=== PATIENT | female | born 1985 | race Hispanic/Latino ===

== ENCOUNTER 2018-10-25 01:15 | Emergency (ER) | payer MEDICAID ==
[2018-10-25 02:16] VITALS: BP 102/58; TEMP 97.9; BMI 33.1
[2018-10-25 02:45] LABS: Bilirubin Negative (Negative); Blood, Urine Negative (Negative); Clarity CLOUDY (Clear); Glucose, Urine (Dipstick) Negative (Negative); Leukocyte Negative (Negative); Nitrite Negative (Negative); Protein, Urine (Dipstick) Negative (Neg-Trace); Specific Gravity, Urine 1.025 (1.002-1.036)
--- NOTE | 2018-10-25 02:46 | PDOC.FPROB ---
FMR OB H&P: HPI - History of Present Illness Chief Complaint: Labor Pains Indentification: 33 yo @ 30.6 weeks by 30.1 wk Sono History of Present Illness: This is a pt with pmh of schizophrenia that comes in with reported Labor pains. Reports having ctx and that her water broke. During the interview pts eyes are moving in every direction. Does not maintain eye contact. Pt is A&Ox4. Pt is twitching. During the encounter she talks to people that are not there. She denies any auditory or visual hallucinations. Pt does not always respond to questions and seems like she is responding to internal stimuli. Speech is pressured. Pt is Alert and oriented but poor historian. Unsure of how accurate of a history I am receiving from the patient. Pt denies any fever or chills. Denies any recent drug use Primary Care Physician: Gurmeet FMR OB H&P: Current - Care : 10 Para: 8 Gestational age: 30.6 weeks Due date: 12/28/18 Dating Criteria: 30.1 week U/S - OB Labs Blood type: unknown RH: unknown Antibody Screen: unknown HIV: unknown RPR: unknown HepBsAg: unknown Quad screen: unknown Gonorrhea: unknown Chlamydia: unknown GBS: unknown FMR OB H&P: History - Past Medical History PMH: Schizophrenia FMR OB H&P: Medications - Current Home Medications: Medication Instructions Recorded Confirmed Type No Known 10/25/18 10/25/18 History Allergies/Adverse Reactions: Allergies Allergy/AdvReac Type Severity Reaction Status Date / Time No Known Allergies Allergy Verified 10/25/18 02:07 FMR OB H&P: ROS - Review of Systems General: denies: fever/chills, fatigue Eyes: denies: double vision Respiratory: denies: cough, congestion, shortness of breath Gastrointestinal: reports: abdominal pain. denies: cramping, nausea, vomiting, diarrhea, constipation Genitourinary (Female): reports: vaginal pain, contractions. denies: incontinence, vaginal pressure Musculoskeletal: denies: pain, stiffness Neurologic: denies: numbness, weakness Integumentary: denies: itching, rash Psychological: denies: hallucinations (Pt appears to be in acute psychosis at this time. Pt does not maintain eye contact. Is talking to people not present in the room.) FMR OB H&P: Vital Signs - Maternal Vital signs: Vital Signs - First Documented Temp Pulse Resp BP 97.9 F 81 18 102/58 L 10/25/18 02:04 10/25/18 02:04 10/25/18 02:04 10/25/18 02:04 FMR OB H&P: Physical Exam - Physical Exam General: NAD, awake, alert and oriented (Alert and oriented x4) HEENT: normocephalic and atraumatic Deviation from normal: Pt eyes moving very fast and in every direction Chest: non-tender to palpation Heart: RRR, normal S1/S2, no murmurs/rubs/gallops, no edema General: CTAB, no respiratory distress, good air movement, no wheezing Abdomen: gravid, non-tender, bowel sound present, no masses Musculoskeletal: FROM in all four extremities Neurological: sensation to pain,touch and proprioception grossly normal Skin: no rash, capillary refill <2 seconds Psychiatric: good judgement and insight, other (Pt speech is pressured. Pt denies any auditory or visual hallucinations but during exam she is talking to people that arent there. She is fidgeting in the room.) FMR OB H&P: A/P - Problem List (1) Schizophrenia Current Visit: Yes Status: Acute Code(s): F20.9 - SCHIZOPHRENIA, UNSPECIFIED (2) Psychosis Current Visit: Yes Status: Acute Qualifiers: Psychosis type: schizophrenia (3) Current Visit: Yes Status: Acute Qualifiers: Weeks of gestation: 30 weeks Qualified Code(s): Z3A.30 - 30 weeks gestation of Disposition: 33 yo @ 30.6 weeks with pmh of schizophrenia comes in with reported labor pains. Pt appears to be in acute psychosis at this time. -Will get amnisure, fibronectin to rule out labor. Pt did not keep monitor on for prolonged monitoring. No ctx seen in brief heart tone tracing. -Will do SVE on patient once labs come back. -Urinalysis obtained. Psychosis -MHMR consulted. Will have them evaluate once patient is medically cleared. -Will check serum and urine drug screen. -Will check CBC, CMP, and TSH. Discussion: Date/Time: 10/25/18 1105 This H&P was discussed with [] and [] who agree with the above documentation and plan. Addendum - Attending - Attending Attestation Date/Time: 10/25/18 3960 I personally evaluated the patient and discussed the management with Dr. Prado. 33 yo LAF at 32 weeks sent from [facility] ER to r/o PTL. Has h/o schizophrenia. Labs obtained. I agree with the History, Examination, Assessment and Plan documented above with any addition or exceptions noted below.
[2018-10-25 02:50] LABS: Amnisure Test No Membranes Rupture (No Rupture)
[2018-10-25 02:51] LABS: Amnisure Internal Control QC ACCEPTABLE (ACCEPTABLE)
[2018-10-25 02:55] LABS: Amphetamine Detected (NotDetected); Barbiturates Screen Not Detected (NotDetected); Benzodiazepine Screen Not Detected (NotDetected); Cocaine Metabolite Screen Not Detected (NotDetected); Medtox Control Line Valid? VALID (VALID); Medtox Reader # READER 1; Methadone Not Detected (NotDetected); Methamphetamine Not Detected (NotDetected); Opiate Screen Not Detected (NotDetected); Oxycodone Screen Not Detected (NotDetected); Phencyclidine (PCP) Detected (NotDetected); THC/Cannabinoid Screen Detected (NotDetected); Tricyclic Screen Not Detected (NotDetected)
[2018-10-25 03:12] LABS: FFN Internal QC Analyzer PASS (PASS); FFN Internal QC Cassette PASS (PASS); Fetal Fibronectin Negative (Negative)
[2018-10-25 03:13] LABS: #Basophils 0.1 thou/uL (0.0-0.2); #Eosinphils 0.3 thou/uL (0.0-0.7); #Monocytes 0.6 thou/uL (0.11-0.59); #Neutrophils 7.6 thou/uL (1.40-6.50); %Basophils 0.5 % (0.0-1.0); %Eosinophils 2.7 % (0.0-10.0); %Lymphocytes 26.2 % (21.0-51.0); %Monocytes 4.8 % (0.0-10.0); %Neutrophils 65.8 % (42.0-75.0); Hemoglobin 9.1 g/dL (12.0-16.0); Mean Corpuscular HGB CONC 34.6 g/dL (32.0-36.0); Mean Corpuscular Hemoglobin 28.7 pg (27.0-31.0); Mean Corpuscular Volume 82.8 fL (78.0-98.0); Mean Platelet Volume 8.5 fL (7.4-10.4); Platelet Count 271 thou/uL (130-400); RBC Distribution Width 13.1 % (11.5-14.5); Red Blood Cell (RBC) Count 3.17 mill/uL (4.20-5.40); White Blood Cell (WBC) Count 11.6 thou/uL (4.8-10.8)
--- NOTE | 2018-10-25 03:20 | PDOC.EVN ---
Event Note - Event Note Event Note: UDS came back positive for amphetamines, PCP and marijuana. -Pt aminisure, fibronectin are negative. SVE showed cervix closed/thick/ high. -Pt does not appear to be in labor at this time. -urinalysis negative. Pt psychosis is likely drug induced at this time. -Plan will be to consult MHMR at this time. -Awaiting CBC, CMP and TSH Addendum - Attending - Attending Attestation Date/Time: 10/25/18 0626 I personally evaluated the patient and discussed the management with Dr. Prado. FFN and amnisure are negative. UDS is positive for multiple substances. Will obtain MHMR evaluation. I agree with the History, Examination, Assessment and Plan documented above.
[2018-10-25 03:25] LABS: ALT (SGPT) 9 U/L (8-55); AST (SGOT) 14 U/L (5-34); Acetaminophen Less than 6.0 mcg/mL (10.0-30.0); Alcohol Less than 10 mg/dL (Less than 10); Alkaline Phosphatase 118 U/L (40-150); Anion Gap 11 mmol/L (10-20); BUN (Urea Nitrogen) 12 mg/dL (7.0-18.7); Bilirubin, Total 0.2 mg/dL (0.2-1.2); Calc. Creatinine Clearance 209 mL/min (70-130); Calcium 8.8 mg/dL (7.8-10.44); Carbon Dioxide 21 mmol/L (22-29); Chloride 107 mmol/L (98-107); Estimated GFR-MDRD Greater than 90; Globulin 2.9 g/dL (2.4-3.5); Glucose 122 mg/dL (70-105); Potassium 3.4 mmol/L (3.5-5.1); Protein, Total 5.9 g/dL (6.0-8.3); Salicylate Less than 8.0 mg/dL (15.0-30.0); Sodium 136 mmol/L (136-145)
== END 2018-10-25 06:20 | disposition home or self-care (01) ==
LOC: ERS 01:15 → L&D/OP 01:15 → EDSTATUS 04:10 → ERS 06:20
DX: O99.89 Other specified diseases and conditions complicating pregnancy, childbirth and the puerperium (principal); R10.9 Unspecified abdominal pain; O99.343 Other mental disorders complicating pregnancy, third trimester; F20.9 Schizophrenia, unspecified; O99.333 Smoking (tobacco) complicating pregnancy, third trimester; F17.210 Nicotine dependence, cigarettes, uncomplicated; Z3A.31 31 weeks gestation of pregnancy
CPT/HCPCS: 36415; 51701; 80306; 80307; 81003; 82731; 84112; 84443; 96360; 96361; 99284; 99285

== ENCOUNTER 2018-10-29 17:05 | Day surgery (SDC) | payer MEDICARE, MEDICAID ==
[2018-10-29 17:57] LABS: Amnisure Internal Control QC ACCEPTABLE (ACCEPTABLE); Amnisure Test No Membranes Rupture (No Rupture)
[2018-10-29 18:02] LABS: FFN Internal QC Analyzer PASS (PASS); FFN Internal QC Cassette PASS (PASS); Fetal Fibronectin Negative (Negative)
--- NOTE | 2018-10-30 01:55 | PRG ---
DATE OF SERVICE: 10/29/2018 PRIMARY OB: Sd Levi MD CHIEF COMPLAINT: "About to have my baby." HISTORY OF PRESENT ILLNESS: The patient is a 33-year-old, G10, P8 female with an intrauterine at 31 weeks and 3 days, who was brought by EMS with the patient is concerned about feeling like her baby is about to fall out. The patient's past medical history is significant for schizophrenia and off medication, who has been seen frequently in the emergency room here at the hospital and in the last few days, was seen in Labor and Delivery with similar complaints. The patient reports she has had watery discharge. She reports that she does use drugs, but is unwilling to go into details. The patient reports that she has been discharged from [facility] and has been off medication for about 6 months. The patient denies uterine contractions. She denies fever, fall, headache, chest pain, or shortness of breath. She has had nausea. Denies vomiting. Denies diarrhea or constipation. Denies hip problems, knee problems, or muscle weakness. Denies any new rashes. Denies any vaginal bleeding. Reports leakage of fluid. Denies urinary urgency. The patient also denies any suicidal or homicidal ideation. PAST MEDICAL HISTORY: Schizophrenia. PAST SURGICAL HISTORY: Negative. PSYCHIATRIC HISTORY: Schizophrenia. SOCIAL HISTORY: Reports denies drinking during this . Reports tobacco use. Also admits to illicit drug use, though would not speak in details. Her labs a few days ago were positive for PCP and methamphetamines and marijuana. ALLERGIES: NO KNOWN DRUG ALLERGIES. MEDICATIONS: None. OB LABS: Unavailable. REVIEW OF SYSTEMS: Per HPI. PHYSICAL EXAMINATION: VITAL SIGNS: Blood pressure 101/55, heart rate of 68, respiratory rate of 20, saturating 100% on room air, and temperature 98.2. GENERAL: She appears to be in no acute distress. She is alert, oriented, cooperative, and pleasant to interact with. HEAD: Normocephalic, atraumatic. LUNGS: Clear to auscultation bilaterally. HEART: Has regular rate and rhythm. ABDOMEN: Gravid, soft, nontender. EXTREMITIES: Nontender, nonedematous. : Cervix is closed and thick with no presenting part palpable through the vaginal wall. heart tracing demonstrates the fetus with a baseline in the 140s with moderate long-term variability, positive 15 x 15 accelerations, no decelerations. Tocometer showing some irritability. fibronectin is negative. AmniSure test is negative. CBC from 4 days ago shows white count of 11.6, hemoglobin 9.1, hematocrit 26.2, and platelets of 271,000. Drug screen again positive for methamphetamines, marijuana, and PCP. ASSESSMENT AND PLAN: The patient is a 33-year-old female. The patient has no evidence of labor at this time. She has demanded that we find a ride for her home as she has disability, and Medicare is responsible for getting her home. We have attempted to call some of her family and friends, who have not answered the phone. With some coordination, the Ambulance Service has agreed to take her back to her home. The patient will be discharged to home with no evidence of labor. She has been encouraged to follow up with her primary OB as scheduled. I have counseled her in refraining from drug use. Job ID: [id number]
== END 2018-10-29 20:08 | disposition home or self-care (01) ==
LOC: L&D/OP 17:05
PROVIDERS: ATTEND Obstetrics & Gynecology
DX: O47.03 False labor before 37 completed weeks of gestation, third trimester (principal); O99.343 Other mental disorders complicating pregnancy, third trimester; F20.9 Schizophrenia, unspecified; O99.333 Smoking (tobacco) complicating pregnancy, third trimester; F17.200 Nicotine dependence, unspecified, uncomplicated; Z3A.31 31 weeks gestation of pregnancy
CPT/HCPCS: 82731; 84112; 99283

== ENCOUNTER 2018-10-30 05:01 | Day surgery (SDC) | payer MEDICARE, MEDICAID ==
--- NOTE | 2018-10-30 07:30 | PDOC.EVN ---
Event Note - Event Note Event Note: called to bedside with report that patient had returned demanding that her baby be induced out of her. Pt has h/o mental health disorder. This is the third time to present in the last several days, second time in the last 24hrs. When she was told by nursing staff they werent going to induce her she started asking for food and that we again get a ride for her. Pt became beligerant and security was called. When I arrived to the room pt was laying on the bed with her clothes on drinking the juice she was given. She was surprised it seemed that i was still here. I shared with the patient that she was not in labor and that she needed to go home. She demanded that we get a ride again. She began cursing profusely. Security, who had been called prior to my arrival, came and explained to the patient that she needed to call family or friends to get a ride home. I left the scene when pt agreed to do so. pt was not suicidal/ homocidal. tracing from the prior several hour visit was cat 1. tracing on this encounters was broken up with only about 10-15min. baseline 130s with mod ltv. To my knowledge pt found a ride as she is nolonger here.
== END 2018-10-30 05:50 | disposition left against medical advice (07) ==
LOC: L&D/OP 05:01
PROVIDERS: ATTEND Family Medicine
DX: O99.340 Other mental disorders complicating pregnancy, unspecified trimester (principal); F99 Mental disorder, not otherwise specified
CPT/HCPCS: 99282

== ENCOUNTER 2018-11-05 09:23 | Emergency (ER) | payer MEDICARE, MEDICAID ==
[2018-11-05 10:04] LABS: Bilirubin Negative (Negative); Blood, Urine Negative (Negative); Clarity CLEAR (Clear); Glucose, Urine (Dipstick) Negative (Negative); Leukocyte Moderate (Negative); Nitrite Positive (Negative); Protein, Urine (Dipstick) Negative (Neg-Trace); Specific Gravity, Urine 1.028 (1.002-1.036)
[2018-11-05 10:06] LABS: Bacteria/HPF 4+ HPF (None Seen); Hyaline Casts/LPF 0-3 HYALINE CAST LPF (0-3 Hyaline); RBC/HPF 0-3 HPF (0-3)
[2018-11-05 10:14] LABS: #Basophils 0.1 thou/uL (0.0-0.2); #Eosinphils 0.3 thou/uL (0.0-0.7); #Lymphocytes 3.5 thou/uL (1.20-3.40); #Monocytes 0.8 thou/uL (0.11-0.59); #Neutrophils 7.1 thou/uL (1.40-6.50); %Basophils 0.7 % (0.0-1.0); %Eosinophils 2.7 % (0.0-10.0); %Lymphocytes 29.5 % (21.0-51.0); %Monocytes 6.5 % (0.0-10.0); %Neutrophils 60.6 % (42.0-75.0); Mean Corpuscular HGB CONC 32.9 g/dL (32.0-36.0); Mean Corpuscular Hemoglobin 27.2 pg (27.0-31.0); Mean Corpuscular Volume 82.6 fL (78.0-98.0); Mean Platelet Volume 8.2 fL (7.4-10.4); Platelet Count 256 thou/uL (130-400); RBC Distribution Width 13.6 % (11.5-14.5); Red Blood Cell (RBC) Count 3.32 mill/uL (4.20-5.40); White Blood Cell (WBC) Count 11.8 thou/uL (4.8-10.8)
[2018-11-05 10:15] LABS: Amphetamine Detected (NotDetected); Barbiturates Screen Not Detected (NotDetected); Benzodiazepine Screen Not Detected (NotDetected); Cocaine Metabolite Screen Not Detected (NotDetected); Medtox Control Line Valid? VALID (VALID); Medtox Reader # READER 4; Methadone Not Detected (NotDetected); Methamphetamine Detected (NotDetected); Opiate Screen Not Detected (NotDetected); Oxycodone Screen Not Detected (NotDetected); Phencyclidine (PCP) Detected (NotDetected); THC/Cannabinoid Screen Detected (NotDetected); Tricyclic Screen Not Detected (NotDetected)
[2018-11-05 10:42] LABS: ALT (SGPT) 10 U/L (8-55); AST (SGOT) 18 U/L (5-34); Acetaminophen Less than 6.0 mcg/mL (10.0-30.0); Albumin 3.2 g/dL (3.5-5.0); Alcohol Less than 10 mg/dL (Less than 10); Alkaline Phosphatase 134 U/L (40-150); Anion Gap 12 mmol/L (10-20); BUN (Urea Nitrogen) 12 mg/dL (7.0-18.7); Bilirubin, Total 0.2 mg/dL (0.2-1.2); Calc. Creatinine Clearance 0 mL/min (70-130); Calcium 8.4 mg/dL (7.8-10.44); Carbon Dioxide 19 mmol/L (22-29); Chloride 107 mmol/L (98-107); Estimated GFR-MDRD Greater than 90; Globulin 2.9 g/dL (2.4-3.5); Glucose 69 mg/dL (70-105); Potassium 3.4 mmol/L (3.5-5.1); Protein, Total 6.1 g/dL (6.0-8.3); Salicylate Less than 8.0 mg/dL (15.0-30.0); Sodium 135 mmol/L (136-145)
[2018-11-05] MEDS ORDERED: Nitrofurantoin Macrocrystal 50 MG CAP PO SCH ×2 (13:00→21:00)
[2018-11-06] MEDS ORDERED: diphenhydrAMINE 12.5 MG/5 ML UDCUP PO SCH (21:30)
[2018-11-06] MEDS ORDERED: Nitrofurantoin ORAL SUSP. 25 MG/5 ML UDCUP PO SCH (21:30)
[2018-11-07] MEDS ORDERED: Nitrofurantoin ORAL SUSP. 25 MG/5 ML UDCUP PO SCH (09:00)
== END 2018-11-05 13:46 ==
LOC: ERS 09:23
DX: O99.343 Other mental disorders complicating pregnancy, third trimester (principal); F23 Brief psychotic disorder; F19.10 Other psychoactive substance abuse, uncomplicated; O23.43 Unspecified infection of urinary tract in pregnancy, third trimester; O99.333 Smoking (tobacco) complicating pregnancy, third trimester
CPT/HCPCS: 36415; 59025; 80053; 80306; 80307; 81003; 81015; 84443; 84702; 85025; 99285; Q0163

== ENCOUNTER 2018-11-11 22:06 | Emergency (ER) | payer MEDICARE, MEDICAID ==
[2018-11-11 23:03] LABS: #Basophils 0.1 thou/uL (0.0-0.2); #Eosinphils 0.4 thou/uL (0.0-0.7); #Lymphocytes 3.6 thou/uL (1.20-3.40); #Monocytes 0.7 thou/uL (0.11-0.59); #Neutrophils 6.5 thou/uL (1.40-6.50); %Basophils 0.6 % (0.0-1.0); %Eosinophils 3.4 % (0.0-10.0); %Monocytes 5.9 % (0.0-10.0); %Neutrophils 58.2 % (42.0-75.0); Hemoglobin 9.6 g/dL (12.0-16.0); Mean Corpuscular HGB CONC 33.2 g/dL (32.0-36.0); Mean Corpuscular Hemoglobin 27.3 pg (27.0-31.0); Mean Corpuscular Volume 82.2 fL (78.0-98.0); Mean Platelet Volume 8.5 fL (7.4-10.4); Platelet Count 266 thou/uL (130-400); RBC Distribution Width 13.6 % (11.5-14.5); Red Blood Cell (RBC) Count 3.51 mill/uL (4.20-5.40); White Blood Cell (WBC) Count 11.2 thou/uL (4.8-10.8)
[2018-11-11 23:25] LABS: ALT (SGPT) 10 U/L (8-55); AST (SGOT) 14 U/L (5-34); Albumin 3.3 g/dL (3.5-5.0); Alkaline Phosphatase 150 U/L (40-150); Anion Gap 12 mmol/L (10-20); BUN (Urea Nitrogen) 9 mg/dL (7.0-18.7); Bilirubin, Total 0.2 mg/dL (0.2-1.2); CK (CPK) 70 U/L (29-168); Calc. Creatinine Clearance 0 mL/min (70-130); Calcium 8.6 mg/dL (7.8-10.44); Carbon Dioxide 23 mmol/L (22-29); Chloride 106 mmol/L (98-107); Estimated GFR-MDRD Greater than 90; Globulin 2.6 g/dL (2.4-3.5); Glucose 106 mg/dL (70-105); Protein, Total 5.9 g/dL (6.0-8.3); Sodium 137 mmol/L (136-145)
[2018-11-11 23:26] LABS: Acetaminophen Less than 6.0 mcg/mL (10.0-30.0); Alcohol Less than 10 mg/dL (Less than 10); Salicylate Less than 8.0 mg/dL (15.0-30.0)
[2018-11-12 01:12] LABS: Bilirubin Negative (Negative); Blood, Urine Negative (Negative); Clarity CLEAR (Clear); Glucose, Urine (Dipstick) Negative (Negative); Leukocyte Moderate (Negative); Nitrite Negative (Negative); Protein, Urine (Dipstick) Negative (Neg-Trace); Specific Gravity, Urine 1.008 (1.002-1.036)
[2018-11-12 01:14] LABS: Bacteria/HPF 2+ HPF (None Seen); Hyaline Casts/LPF 0-3 HYALINE CAST LPF (0-3 Hyaline); RBC/HPF 0-3 HPF (0-3); WBC/HPF 0-3 HPF (0-3)
[2018-11-12 01:28] LABS: Medtox Reader # READER 1; THC/Cannabinoid Screen Detected (NotDetected)
[2018-11-12 01:29] LABS: Amphetamine Not Detected (NotDetected); Barbiturates Screen Not Detected (NotDetected); Benzodiazepine Screen Not Detected (NotDetected); Cocaine Metabolite Screen Not Detected (NotDetected); Medtox Control Line Valid? VALID (VALID); Methadone Not Detected (NotDetected); Methamphetamine Not Detected (NotDetected); Opiate Screen Not Detected (NotDetected); Oxycodone Screen Not Detected (NotDetected); Phencyclidine (PCP) Detected (NotDetected); Tricyclic Screen Not Detected (NotDetected)
--- NOTE | 2018-11-12 04:38 | CON ---
DATE OF CONSULTATION: 11/12/2018 CONSULTING PHYSICIAN: Tre Umanzor MD EMERGENCY ROOM PROVIDER: Latoya Mercer DO REASON FOR CONSULTATION: Rule out labor. HISTORY OF PRESENT ILLNESS: Ms. Laurent is a 33-year-old G10, P8, with an estimated date of confinement of 12/28/2018 by late third trimester ultrasound, who is seen in the ER complaining of labor pains. She denies ruptured membranes or vaginal bleeding. This patient has had multiple admissions for labor-related complaints. Due to her schizophrenia, it has been decided that she will be evaluated in the ER prior to bringing her to Labor and Delivery. PAST OBSTETRICAL HISTORY: Reportedly includes 8 vaginal deliveries. PAST MEDICAL HISTORY: Schizophrenia. PAST SURGICAL HISTORY: None. ALLERGIES: NO KNOWN ALLERGIES. MEDICATIONS: Currently, unknown. SOCIAL HISTORY: She does have a history of drug use. FAMILY HISTORY: Unknown. REVIEW OF SYSTEMS: Denies nausea, vomiting, fever, or chills. PHYSICAL EXAMINATION: VITAL SIGNS: In the ER, her vital signs are stable and she is afebrile. GENERAL: She appears confused, but does answer some questions directly. ABDOMEN: Soft, nontender, and gravid. PELVIC: Shows the cervix to be fingertip dilated with the cervix being thick. heart tones could not be adequately assessed as the patient is not responsive to commands and moves back and forth while on the monitor. The decision was made to proceed with a biophysical profile, which returns 02/11. ASSESSMENT: 1. 33 and 3/7th week intrauterine by late ultrasound. 2. Schizophrenia. 3. No evidence of labor at this time. PLAN: I have notified the ER personnel of the findings, and she will be evaluated further there. Job ID: [id number]
--- NOTE | 2018-11-12 07:58 | ULT ---
PRELIMINARY REPORT: US Biophysical Profile Without Non-Stress Test EXAM DATE/TIME: 11/11/2018 11:54 PM CLINICAL HISTORY: 33 years old, female; Pain and signs and symptoms; Other: Contractions; ; Patient HX: Pelvic pain with spotting x 9 days TECHNIQUE: Imaging protocol: US biophysical profile without non-stress testing. COMPARISON: No relevant prior studies available. FINDINGS: Breathin/2 Gross body movements: 2/2 tone: 2/2 Qualitative amniotic fluid: 2/2 IMPRESSION: Biophysical profile score is 8 out of 8. Thank you for allowing us to participate in the care of your patient. Dictated and Authenticated by: Stanley Padilla MD 11/12/2018 12:58 AM Central Time ([place] & [place]) FINAL REPORT Urgent Study OBSTETRICAL ULTRASOUND FOR BIOPHYSICAL PROFILE: INDICATION: Pelvic pain with vaginal spotting IMPRESSION: I agree with the preliminary report provided. Biophysical profile is 8 out of 8. Fetus is in vertex p resentation with cardiac activity measured at 143 bpm. Cervical length was 4.07 cm. Transcribed Date/Time: 11/12/2018 8:05 AM
== END 2018-11-12 04:37 | disposition home or self-care (01) ==
LOC: ERS 22:06
DX: O99.89 Other specified diseases and conditions complicating pregnancy, childbirth and the puerperium (principal); R10.2 Pelvic and perineal pain; O99.323 Drug use complicating pregnancy, third trimester; F16.10 Hallucinogen abuse, uncomplicated; O99.343 Other mental disorders complicating pregnancy, third trimester; F20.9 Schizophrenia, unspecified; O99.333 Smoking (tobacco) complicating pregnancy, third trimester; F17.210 Nicotine dependence, cigarettes, uncomplicated; Z3A.33 33 weeks gestation of pregnancy
CPT/HCPCS: 36415; 76819; 80306; 80307; 81003; 82550; 93005

== ENCOUNTER 2018-11-22 00:43 | Emergency (ER) | payer MEDICAID, MEDICARE ==
--- NOTE | 2018-11-22 07:41 | ULT ---
ULTRASOUND BIOPHYSICAL PROFILE: INDICATION: Potential labor. FINDINGS: Reference is made to 11/11/2018 exam. tone 2, breathing 2, movements 2, amniotic fluid 2, biophysical score 8/8. cardiac activity is documented at 137 b.p.m. The fetus is in the vertex lie. Placenta is loca danielle primarily posterior. The imaged cervix is 2.5 cm in length. IMPRESSION: Biophysical profile score 8/8. POS: DIEGOK
--- NOTE | 2018-11-23 06:58 | PDOC.EVN ---
Event Note - Event Note Event Note: Consultation Note dictated 11/22 not yet available HPI: Patient is a 33 yo F who is at 34.6w by 3T sono sent here from [place] as GUS for n/v. We were called to the ER to assess status and r/o labor. At time we saw patient, she was not complaining of any pain, discomfort, n/v or concern otherwise. She denied VB, LOF, ctx and endorsed movement VS reviewed and WNL Gen: awake, alert HEENT: NCAT, conjunctiva non-injected RESP: breathing unlabored ABD: gravid, nontender EXT: no edema Patient was cl/th/hi on ER MD cervical check NST reviewed and reassuring 130/mod/+1 accel/no decel BPP 02/11 with cervical length approx 2.5cm A/P: Patient does not appear to be in labor at this time. Has f/u with Clinic this Friday. Was advised to be sure to make it to that appointment. Return precautions given. Polysubstance abuse advised to d/c. Remainder of management and dispo per primary ER team. Addendum - Attending - Attending Attestation Date/Time: 11/25/18 9095 I personally evaluated the patient and discussed the management with Dr. Portillo. I agree with the History, Examination, Assessment and Plan documented above. Pt. states she has appt. with [facility] in [place] this week.
--- NOTE | 2018-11-23 09:31 | CON ---
DATE OF CONSULTATION: 11/22/2018 HISTORY OF PRESENT ILLNESS: The patient is a 33-year-old unknown patient (suspected ), who was transferred here from [place] for nausea and vomiting. She has an EDC of 12/28/2018 based on third trimester ultrasound, which puts her at 34 weeks and 6 days today. She cannot tell us what brought her to the emergency room tonight, however, was transferred for concern of n/v and further evaluation. We were notified from the ER that she was here and we were requested for evaluation of labor. The patient was seen and denied any contractions or loss of fluid or vaginal bleeding. She reports feeling regular movement. She denies nausea at this time. Denies vaginal discharge, dysuria, hematuria. ROS: 10 point ROS negative, N/V resolved at this time EXAM: VS reviewed and WNL Gen: awake, alert HEENT: NCAT, trachea midline RESP: Breathing unlabored ABD: gravid, NTND EXT: no edema SVE: cl/th/high per ERMD BPP 8/8, FHT 130/mod/+accel x1/no decel (10 minute strip 2/2 noncompliance) A/P: 33 yo G? at 34.6w by 3T sono here with acute intoxication, not in labor She was unable to be compliant with heart tracing for 20 minutes but 10 minute strip picked up with a baseline rate of 130 beats per minute with one acceleration noted and therefore, BPP was also ordered, which was 8/8. Her cervical length was then 2.5 cm. At that time, we did not believe the patient to be in labor and status was reassuring. Any further management was deferred to the emergency room physician. Patient seen with Dr. Umanzor Pt. examined with Dr. Portillo. Agree with history and evaluation noted above.. Job ID: [id number] [facility]
== END 2018-11-22 04:35 | disposition home or self-care (01) ==
LOC: ERS 00:43
DX: O23.40 Unspecified infection of urinary tract in pregnancy, unspecified trimester (principal)
CPT/HCPCS: 76819

== ENCOUNTER 2018-12-01 05:32 | Emergency (ER) | payer MEDICAID ==
--- NOTE | 2018-12-01 07:25 | PDOC.LDHP ---
Labor and Delivery H&P Chief complaint: contractions HPI: 33 y/o unknown gestation (suspected ) at 36w1d by 30wk us presented to ED for contractions. Denies VB, LOF, or decreased FM. Seen in ED. ROS neg for HEENT, cv, pulm, gi, gu, neuro, psych, skin, musculoskeletal or constitutional symptoms other than mentioned above. OB History Details: Reported 8 SVDs Past Medical History: Schizophrenia Current medications: none Previous surgical history: none Allergies/Adverse Reactions: Allergies Allergy/AdvReac Type Severity Reaction Status Date / Time No Known Allergies Allergy Verified 10/25/18 02:07 Social history: drug use (history of) - Physical Exam Vital signs reviewed and normal: yes General: NAD, resting (sleeping) Lungs: nonlabored breathing Abdomen: gravid Extremeties: no edema FHT: category 1 (normal baseline, moderate variability, + accels, no decels) [place] contractions every: none - Vaginal Exam cm dilated: 0 Effacement: 0% Station: -3 - Assessment 33 y/o at 36w1d with no e/o active labor. status reassuring with reactive NST. - Plan -: D/c home with precautions. Advised to keep all appointments.
== END 2018-12-01 06:50 | disposition home or self-care (01) ==
LOC: ERS 05:32
DX: O99.89 Other specified diseases and conditions complicating pregnancy, childbirth and the puerperium (principal); R10.2 Pelvic and perineal pain; O99.343 Other mental disorders complicating pregnancy, third trimester; F20.9 Schizophrenia, unspecified; O99.333 Smoking (tobacco) complicating pregnancy, third trimester; F17.210 Nicotine dependence, cigarettes, uncomplicated; Z3A.34 34 weeks gestation of pregnancy
CPT/HCPCS: 99281